=== PATIENT | female | born 1980 | race Caucasian/White ===

== ENCOUNTER → 2020-03-26 | Outpatient (REF) | payer OTHER ==
[~2020-03-26] MED LIST: FAMO20TA PO; MECL1TAB31 PO; ONDA4TAB6 PO; PAME10CA PO; mis; physical therapy
[2020-03-26 11:58] LABS: BASO % 0.7 % (0.0-1.0); EOS # 0.2 10^3/uL (0.0-0.5); EOS % 2.7 % (0.0-3.0); HEMATOCRIT 40.8 % (36.0-47.0); LYMPH # 1.7 10^3/uL (1.5-5.0); MEAN CORPUSCULAR HEMOGLOBIN 28.6 pg (27.0-33.0); MEAN CORPUSCULAR HGB CONC 31.9 g/dl (32.0-36.5); MEAN CORPUSCULAR VOLUME 89.9 fl (80.0-96.0); MONO # 0.5 10^3/uL (0.0-0.8); NEUTROPHILS # 3.3 10^3/uL (1.5-8.5); NEUTROPHILS % 58.4 % (36.0-66.0); PLATELET COUNT, AUTOMATED 309 10^3/uL (150-450); RED BLOOD COUNT 4.54 10^6/uL (4.00-5.40); WHITE BLOOD COUNT 5.6 10^3/uL (4.0-10.0)
[2020-03-26 13:06] LABS: ALBUMIN 3.7 GM/DL (3.2-5.2); ALT/SGPT 27 U/L (12-78); BILIRUBIN,TOTAL 0.6 MG/DL (0.2-1.0); BLOOD UREA NITROGEN 11 MG/DL (7-18); CALCIUM LEVEL 9.4 MG/DL (8.5-10.1); CARBON DIOXIDE LEVEL 26 MEQ/L (21-32); CHLORIDE LEVEL 106 MEQ/L (98-107); CHOLESTEROL LEVEL 181 MG/DL (<200); CHOLESTEROL RISK RATIO 3.549 (<5); CREATININE FOR GFR 0.83 MG/DL (0.55-1.30); FREE T4 1.13 NG/DL (0.76-1.46); GLOMERULAR FILTRATION RATE > 60.0 (>58); GLUCOSE, FASTING 81 MG/DL (70-100); HDL CHOLESTEROL 51 MG/DL (>40); LDL CHOLESTEROL 101 MG/DL (<100); NON-HDL-C 130 MG/DL; POTASSIUM SERUM 4.2 MEQ/L (3.5-5.1); SODIUM LEVEL 138 MEQ/L (136-145); TOTAL PROTEIN 7.3 GM/DL (6.4-8.2); TRIGLYCERIDES LEVEL 146 MG/DL (<150)
[2020-03-26 14:28] LABS: HEMOGLOBIN A1c 5.6 %
== END ==
LOC: M SFHCPLAZ 10:04
PROVIDERS: ATTEND Physician Assistant Medical
DX: Z13.220 Encounter for screening for lipoid disorders (principal); K21.9 Gastro-esophageal reflux disease without esophagitis; Z68.31 Body mass index [BMI] 31.0-31.9, adult

== ENCOUNTER → 2020-03-26 | Outpatient (CLI) | payer OTHER ==
--- NOTE | 2020-03-26 10:41 | REPPI ---
Clinical: Left shoulder pain . Technique: Internal rotation, external rotation, and Y view left shoulder . Findings: No acute fracture or dislocation. The acromioclavicular and glenohumeral joints are intact. No periarticular calcifications or degenerative changes are appreciated. Sub acromial space is normal. Surrounding soft tissues are unremarkable. Impression: Normal age-appropriate left shoulder radiographs. Electronically Signed by Jeff Mejias MD 03/26/2020 10:33 A
== END ==
LOC: M PLAIMG 10:06
PROVIDERS: ATTEND Physician Assistant Medical
DX: M79.2 Neuralgia and neuritis, unspecified (principal)

== ENCOUNTER 2020-05-06 13:00 | Outpatient (RCR) | payer OTHER | END 2020-05-10 | disposition home or self-care (01) | LOC: M PT 13:00 | PROVIDERS: ATTEND Physician Assistant Medical | DX: M79.2 Neuralgia and neuritis, unspecified (principal) ==

== ENCOUNTER → 2020-05-30 | Outpatient (CLI) | payer OTHER ==
--- NOTE | 2020-06-01 13:54 | REPMRS ---
Patient History The patient states she had a clinical breast exam in 05/2020. No known family history of cancer. No Hormone Replacement Therapy Digital Woman Screen Mammo: May 30, 2020 - Exam #: [id number] Bilateral CC and MLO view(s) were taken. Technologist: Renate Reed, Technologist No prior studies available for comparison. FINDINGS: There are scattered fibroglandular densities. The Volpara volumetric breast density category is: B. There is no evidence of dominant mass, architectural distortion, or grouped microcalcification typical of malignancy. 3-D tomosynthesis shows no additional findings. Assessment: BI-RADS/ACR category 1 mammogram. Negative Mammogram. Recommendation Routine screening mammogram of both breasts in 1 year (for women over age 40). This patient's Lifetime Breast Cancer RIsk is estimated at 9.7 %. This mammogram was interpreted with the aid of an FDA-approved computer-aided dectection system. Electronically Signed By: Joby Torres MD 06/01/20 [id number]
== END ==
LOC: M WHC 13:09
PROVIDERS: ATTEND Advanced Practice Midwife
DX: Z12.31 Encounter for screening mammogram for malignant neoplasm of breast (principal); Z12.4 Encounter for screening for malignant neoplasm of cervix

== ENCOUNTER → 2020-05-30 | Outpatient (REF) | payer OTHER ==
[2020-05-30 20:38] LABS: CHLAMYDIA DNA AMPLIFICATION NEGATIVE (NEGATIVE); GC DNA AMPLIFICATION NEGATIVE (NEGATIVE)
== END ==
LOC: M LAB REF 16:59
PROVIDERS: ATTEND Advanced Practice Midwife
DX: Z11.3 Encounter for screening for infections with a predominantly sexual mode of transmission (principal)

== ENCOUNTER 2020-06-06 15:15 | Outpatient (RCR) | payer OTHER | END 2020-06-10 | LOC: M PT 15:15 | PROVIDERS: ATTEND Physician Assistant Medical | DX: M79.2 Neuralgia and neuritis, unspecified (principal) ==

== ENCOUNTER 2020-07-09 15:15 | Outpatient (RCR) | payer OTHER | END 2020-07-10 | LOC: M PT 15:15 | PROVIDERS: ATTEND Physician Assistant Medical | DX: M79.2 Neuralgia and neuritis, unspecified (principal) ==

== ENCOUNTER 2020-07-26 10:59 | Emergency (ER) | payer OTHER ==
[~2020-07-26] VITALS: Ht 165.1 cm; Wt 85.9 kg
[2020-07-26] MEDS ORDERED: FAMO20TA PO (11:09)
[2020-07-26] MEDS ORDERED: PAME10CA PO (11:09)
[2020-07-26] MEDS ORDERED: ONDANSETRON 4 MG ORAL DISINTEGRATING TAB PO ONE (11:45)
[2020-07-26] MEDS ORDERED: MECLIZINE 25 MG TABLET PO ONE (12:00)
--- NOTE | 2020-07-26 12:48 | REPVR ---
PROCEDURE INFORMATION: Exam: CT Head Without Contrast Exam date and time: 07/26/2020 12:37 PM Age: 40 years old Clinical indication: Dizziness; Additional info: Vertigo/dizziness TECHNIQUE: Imaging protocol: Computed tomography of the head without contrast. Radiation optimization: All CT scans at this facility use at least one of these dose optimization techniques: automated exposure control; mA and/or kV adjustment per patient size (includes targeted exams where dose is matched to clinical indication); or iterative reconstruction. COMPARISON: No relevant prior studies available. FINDINGS: Brain: Normal. No hemorrhage. Unremarkable white matter. No mass effect. Cerebral ventricles: No ventriculomegaly. Bones/joints: Unremarkable. No acute fracture. Paranasal sinuses: Visualized sinuses are unremarkable. No fluid levels. Mastoid air cells: Visualized mastoid air cells are well aerated. Soft tissues: Unremarkable. IMPRESSION: No acute intracranial abnormality. Electronically signed by: Abbie Chance On 07/26/2020 12:47:53 PM
[2020-07-26] MEDS ORDERED: mis (14:10)
[2020-07-26] MEDS ORDERED: physical therapy (14:10)
[2020-07-26] MEDS ORDERED: MECL1TAB31 PO (14:10)
[2020-07-26] MEDS ORDERED: ONDA4TAB6 PO (14:10)
[2020-07-26 14:19] VITALS: BP 133/73
--- NOTE | 2020-07-27 07:43 | ECGEPIP ---
[facility] - ED Test Date: 2020-07-26 Pat Name: TANGELA PAULINO Department: Room: - Gender: Female Certified Ophthalmic Assistant: JACLYN : 1980 Requested By: Guillermina Crews Order Number: [id number] Reading MD: Matthew Liz Measurements Intervals [place] Rate: 88 P: 38 MD: 175 QRS: 9 QRSD: 84 T: -8 QT: 330 QTc: 401 Interpretive Statements SINUS RHYTHM NONSPECIFIC T-WAVE ABNORMALITY Baseline artifact Comparison tracing not on file Electronically Signed on 07-27-2020 7:43:25 EDT by Matthew Liz
== END 2020-07-26 14:29 | disposition home or self-care (01) ==
LOC: M ED 10:59
DX: H81.10 Benign paroxysmal vertigo, unspecified ear (principal)
CPT/HCPCS: 70450; 93005; 97161; 99284; Q0162

== ENCOUNTER → 2020-08-07 | Outpatient (CLI) | payer OTHER ==
--- NOTE | 2020-08-07 15:13 | REPPI ---
INDICATION: M79.2 NEUROPATHIC PAIN OF LEFT SHOULDER. COMPARISON: None. TECHNIQUE: Seven views. FINDINGS: Lateral views done in flexion, extension, and neutral position demonstrate normal alignment. Vertebral body heights are preserved. No subluxation or instability is seen. There is degenerative disc narrowing and anterior osteophyte formation mild degree at the C 4 5 and C5-6 disc levels. Prevertebral soft tissues are unremarkable. Oblique images demonstrate intact neural foramina bilaterally at each cervical level and normally aligned facets. AP and open-mouth odontoid views are unremarkable. IMPRESSION: Mild degenerative disc changes at C4-5 and C5-6. Otherwise negative cervical spine radiographs. <Electronically signed by Joby Torres > 08/07/20 [id number]
== END ==
LOC: M PLAIMG 11:37
PROVIDERS: ATTEND Physician Assistant Medical
DX: M79.2 Neuralgia and neuritis, unspecified (principal)

== ENCOUNTER → 2020-08-26 | Outpatient (CLI) | payer OTHER ==
--- NOTE | 2020-08-26 18:29 | REP ---
INDICATION: NEUROPATHIC PAIN LEFT SHOULDER. COMPARISON: None. TECHNIQUE: Coronal oblique T1, T2 fat sat, sagittal oblique T2 fat sat, axial T2 fat sat, gradient echo. FINDINGS: Rotator cuff: There is mild ill-defined high signal on T2 weighted images in the supraspinatus tendon suggesting mild tendinopathy/tendinitis. No rotator cuff tendon tear is seen. Acromioclavicular joint: There are mild hypertrophic degenerative changes at the acromioclavicular joint. Acromion: Type 2 Biceps Tendon: In bicipital groove, no tenosynovitis. Hill Sach's deformity: None. Deltoid muscle: No abnormal signal. Biceps labral complex: Intact. Labrum: No tear. Cartilage: No defects. Bone marrow: No abnormal signal. Joint fluid: No effusion. IMPRESSION: Mild supraspinatus tendinopathy/tendinitis. No rotator cuff tear or labral tear. Mild hypertrophic degenerative changes acromioclavicular joint. <Electronically signed by Ryder Mansfield > 08/26/20 0339
--- NOTE | 2020-08-26 18:56 | REPVR ---
PROCEDURE INFORMATION: Exam: MR Cervical Spine Without Contrast Exam date and time: 08/26/2020 5:18 PM Age: 40 years old Clinical indication: Other: Neuropathic pain left shoulder TECHNIQUE: Imaging protocol: Multiplanar magnetic resonance images of the cervical spine without contrast. COMPARISON: CR SPINE CERVICAL COMPLETE 08/07/2020 11:54 AM FINDINGS: Vertebrae: Unremarkable. Spinal cord: Normal signal. No cord compression. C2-C3: No significant disc disease. No significant spinal stenosis. C3-C4: No significant disc disease. No significant spinal stenosis. C4-C5: Disc bulge. Moderate bilateral neural foraminal narrowing. Mild to moderate spinal canal stenosis. C5-C6: Disc bulge. Mild to moderate bilateral neural foraminal narrowing. Mild spinal canal stenosis. C6-C7: Disc bulge. Mild spinal canal stenosis. No neural foraminal narrowing. C7-T1: No significant disc disease. No significant spinal stenosis. Vertebral arteries: Expected flow voids in the vertebral arteries. Soft tissues: Unremarkable. IMPRESSION: No acute abnormality. Multilevel degenerative disc disease with neural foraminal narrowing. Moderate bilateral neural foraminal narrowing at C4-C5, mild to moderate bilateral C5-C6. Mild to moderate spinal canal stenosis at C4-C5, mild at C5-C6 and C6-C7 levels. Electronically signed by: Aaron Mak On 08/26/2020 18:56:20 PM
== END ==
LOC: M RAD 16:19
PROVIDERS: ATTEND Physician Assistant Medical
DX: M79.2 Neuralgia and neuritis, unspecified (principal); M50.321 Other cervical disc degeneration at C4-C5 level; M50.322 Other cervical disc degeneration at C5-C6 level

== ENCOUNTER → 2020-09-20 | Outpatient (REF) | payer OTHER ==
[2020-09-21 18:07] LABS: H PYLORI SERUM QUANT IGM <9.0 units (0.0-8.9); H PYLORI SERUM QUANT IgG ABY 0.13 (0.00-0.79)
== END ==
LOC: M SFHCPLAZ 11:03
PROVIDERS: ATTEND Physician Assistant Medical
DX: R19.5 Other fecal abnormalities (principal)

== ENCOUNTER 2020-11-11 11:22 | Emergency (ER) | payer OTHER ==
[~2020-11-11] VITALS: Ht 165.1 cm; Wt 84.1 kg
--- OUTSIDE RECORDS SUMMARY | 2020-11-11 11:34 | CCD | Continuity of Care Document ---
Author Author Cassie ERWIN MD Organization Unknown Address [address] [place] [address] Phone [phone] Care Team Providers Care Fire Hydrant Mechanic Name Role Phone Amena Rodrigues SPENCER AUTM [phone] Problems Description No Information Available Social History Type Date Description Comments Sex Unknown ETOH Use Denies alcohol use Tobacco Use Start: Unknown Denies Smoking Smoking Status Reviewed: 09/27/20 Denies Smoking Allergies, Adverse Reactions, Alerts Active Allergies Reaction Severity Comments Date Penicillin V 09/27/2020 Shrimp 09/27/2020 Medications Active Medications SIG Qnty Indications Ordering Provide r Date Pepcid 40mg Tablets 1 by mouth twice a day Unknown Neurontin 100mg Capsules 1 by mouth three times a day Unknown Immunizations Description No Information Available Vital Signs Date Vital Result Comment 09/27/2020 11:21am Body Temperature 97.3 F Height 65 inches 5'5" Weight 190.00 lb BMI (Body Mass Index) 31.6 kg/m2 Results Description No Information Available Procedures Description No Information Available Medical Devices Description No Information Available Encounters Description No Information Available Assessments Date Code Description Provider 09/27/2020 M25.512 Pain in left shoulder Omari ramos MD 09/27/2020 M54.12 Radiculopathy, cervical region B lars Erwin MD Plan of Treatment 09/27/2020 - Omari Erwin MD* M25.512 Pain in left shoulder* Follow up:* f/u With [facility] for emg study f/u with [facility] after emg study for results * M54.12 Radiculopathy, cervical region Functional Status Description No Information Available Mental Status Description No Information Available Referrals Refer to Reason for Referral Status Appt Date Omari Erwin MD REF NO AUTH REQUIRED FOR REF TO DR WEBBER TO TRA NS NT Created [address] [facility], [address] [place] [address] [phone]
--- OUTSIDE RECORDS SUMMARY | 2020-11-11 11:34 | CCD ---
Author Author [facility] Organization [facility] Address Unknown Phone Unavailable Care Team Providers Care Stock Tracer Name Role Phone Amena Rodrigues Unavailable PROBLEMS Type Condition ICD9-CM Code [id number] Code Onset Dates Condition S tatus SNOMED Code Notes Problem Lipid screening Z13.220 Active 973101972 Problem Colon cancer screening Z12.11 Active 347892283 Problem Breast cancer screening Z12.39 Active 10678244 1 Problem DDD (degenerative disc disease), cervical M50.30 Active 49132803 Problem Gastroesophageal reflux disease, esophagitis pre sence not specified K21.9 Active 959971034 Problem Spinal stenosis, cervical region M48.02 Active 52196385 Problem Cervical cancer screening Z12.4 Active 271052 001 Problem Body mass index (BMI) 31.0-31.9, adult Z68.31 A ctive 095900540 Problem Other obesity due to excess calories E66.09 Act boo 012827931 Problem 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.012 Active 0803296387356939 ALLERGIES Allergen (clinical drug ingredient) Drug/Non Drug Allergy do cumented on EMR Reaction Allergy Type Onset Date Status Penicillin (For Allergies Use Only) Unknown Drug Allerg y Active ENCOUNTERS from 1980 to 2020-08-28 Encounter Location Date Provider Diagnosis [facility] [place] [address] Aug, Amena Rodrigues Neuropathic pain of left shoulder M79.2 ; DDD (degenerative disc disease), cervical M50.30 ; Spinal stenosis, cervical region M48.02 ; Left supraspinatus tendinitis M75.92 and 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 Yes LMP: 03/15/2020 Have you ever had an STD? No Prevention Strategies discussed: Condoms with Men only Use protection? Yes How often? Most of the time Drug and Alcohol Question Answer Notes Total Score: 0 Interpretation: No problems reported Tobacco Use: Question Answer Notes Are you a: never smoker REASON FOR REFERRAL No Information VITAL SIGNS No information MEDICATIONS Medication SIG (Take, Route, Frequency, Duration) Notes Start Da te End Date Status Pepcid 40 MG 1 tablet Orally twice daily for 30 day(s) Active Gabapentin 100 MG 1 capsule Orally bid for 30 day(s) 2019 Active PROCEDURES No Information RESULTS No Results REASON FOR VISIT MRI of L shoulder, C spine MEDICAL (GENERAL) HISTORY Type Description Date Medical History L)[place]oulder rotator cuff tear Surgical History L)shoulder rotator cuff repair 2017 Surgical History gall bladder Surgical History tubal ligation Hospitalization History child x's 3 Goals Section No Information Health Concerns No Information MEDICAL EQUIPMENT No Information MENTAL STATUS No Information FUNCTIONAL STATUS No Information ASSESSMENTS Encounter Date Diagnosis Assessment Notes Treatment Notes Treatm ent Clinical Notes Aug, Neuropathic pain of left shoulder (ICD-10 - M79. 2) Aug, DDD (degenerative disc disease), cervical (ICD-1 0 - M50.30) Aug, Spinal stenosis, cervical region (ICD-10 - M48.0 2) Aug, Left supraspinatus tendinitis (ICD-10 - M75.92) Aug, Degenerative joint disease o f left acromioclavicular joint (ICD-10 - M19.012) PLAN OF TREATMENT Medication Medication Name Sig Start Date Stop Date Pepcid 40 MG 1 tablet Orally twice daily for 30 day(s) Gabapentin 100 MG 1 capsule Orally bid for 30 day(s) Jul, 0 Next Appt Details Provider Name:Amena Rodrigues, 2019-10 01:00:00 PM, [address] [place], [address], Insurance Providers Payer Name Payer Address Payer Phone Insured Name Patient Relati onship to Insured Coverage Start Date Coverage End Date [facility] [address] [facility] [phone] TANGELA PAULINO I self
--- OUTSIDE RECORDS SUMMARY | 2020-11-11 11:34 | CCD | Continuity of Care Document ---
Author Author Cassie JAY MD Organization Unknown Address [address] [place] [address], [address] [place] [address] Phone [phone] Care Team Providers Care Chip Tuner Name Role Phone Amena Rodrigues RPAChetan AUTM Problems Description No Information Available Social History Type Date Description Comments Sex Unknown ETOH Use Rarely consumes alcohol Tobacco Use Start: Unknown Denies Smoking Smoking [...] Available Vital Signs Date Vital Result Comment 10/22/2020 8:36am Body Temperature 97.1 F Height 65 inches 5'5" Weight 190.00 lb BMI (Body Mass Index) 31.6 kg/m2 09/27/2020 11:21am Body Temperature 97.3 F Height 65 inches 5'5" Weight 190.00 lb BMI (Body Mass Index) 31.6 kg/m2 Results Description No Information Available Procedures Date Code Description Status 09/27/2020 96170 Inject Tendon Sheath, Ligament C ompleted Medical Devices Description No Information Available Encounters Type Date Location Provider Dx Diagnosis Office Visit 09/27/2020 10:[facility]a [facility] [place] MD M25.512 Pain in left shoulder M54.12 Radiculopathy, cervical janet on Assessments Date Code Description Provider 09/27/2020 M25.512 Pain in left shoulder Omari ramos MD 09/27/2020 M54.12 Radiculopathy, cervical region B lars Perry MD Plan of Treatment No Information Available Functional Status Description No Information Available Mental Status Description No Information Available Referrals Refer to Reason for Referral Status Appt Date Omari Perry MD EMG NO AUTH REQUIRED TO SCHEDULING NT Create d [address] [place] [address] [phone] Omari Perry MD EMG NO AUTH REQUIRED TO SCHEDULING NT Create d [address] [place] [address] [phone] Omari Perry MD REF NO AUTH REQUIRED FOR REF TO DR WEBBER TO TRA NS NT Created [address] [place] [address] [phone]
--- OUTSIDE RECORDS SUMMARY | 2020-11-11 11:34 | CCD | Continuity of Care Document ---
Author Author Cassie ERWIN MD Organization Unknown Address [address] [place] [address] Phone [phone] Care Team Providers Care Television Station Manager Name Role Phone Amena Rodrigues Toy PALMER AUTM Problems Description No Information Available Social [...] Available Procedures Date Code Description Status 09/27/2020 90131 Inject Tendon Sheath, Ligament C ompleted Medical Devices Description No Information Available Encounters Type Date Location Provider Dx Diagnosis Office Visit 09/27/2020 10:[facility]a [facility] M25.512 Pain in left shoulder M54.12 Radiculopathy, cervical janet on Assessments Date Code Description Provider 09/27/2020 M25.512 Pain in left shoulder Omari ramos MD 09/27/2020 M54.12 Radiculopathy, cervical region B lars Erwin MD Plan of Treatment Future Appointment(s):* 10/22/2020 8:30 am - Xiang Horne MD at [facility] 09/27/2020 - Omari Erwin MD* M25.512 Pain in left shoulder* Follow up:* [facility] f/u with [facility] after emg study for results * M54.12 Radiculopathy, cervical region Functional Status Description No Information Available Mental Status Description No Information Available Referrals Refer to Reason for Referral Status Appt Date Omari Erwin MD EMG NO AUTH REQUIRED TO SCHEDULING NT Create d [address] [place] [address] [phone] Omari Erwin MD EMG NO AUTH REQUIRED TO SCHEDULING NT Create d [address] [place] [address] [phone] Omari Erwin MD REF NO AUTH REQUIRED FOR REF TO DR WEBBER TO TRA NS NT Created [address] [place] [address] [phone]
--- OUTSIDE RECORDS SUMMARY | 2020-11-11 11:34 | CCD ---
Author Author [facility] Organization [facility] Address Unknown Phone Unavailable Care Team Providers Care Pin Chaser Name Role Phone Amena Rodrigues Unavailable PROBLEMS Type Condition ICD9-CM Code POZ02-DC Code Onset Dates Condition S tatus SNOMED Code Notes Problem Lipid screening Z13.220 Active 578208435 Problem Colon cancer screening Z12.11 Active 111340873 Problem Breast cancer screening Z12.39 Active 20555785 1 Problem DDD (degenerative disc disease), cervical M50.30 Active 37453439 Problem Gastroesophageal reflux disease, esophagitis pre sence not specified K21.9 Active 113248352 Problem Spinal stenosis, cervical region M48.02 Active 19478506 Problem Cervical cancer screening Z12.4 Active 137576 001 Problem Body mass index (BMI) 31.0-31.9, adult Z68.31 A ctive 547519129 Problem Other obesity due to excess calories E66.09 Act boo 839848577 Problem 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.012 Active 8088049490812118 ALLERGIES Allergen (clinical drug ingredient) Drug/Non Drug Allergy do cumented on EMR Reaction Allergy Type Onset Date Status Penicillin (For Allergies Use Only) Unknown Drug Allerg y Active ENCOUNTERS from 1980 to 2020-09-26 Encounter Location Date Provider [facility] [place] [address] Sep, Amena Rodrigues Neuropathic pain of left shoulder M79.2 ; DDD (degenerative disc disease), cervical M50.30 ; Spinal stenosis, cervical region M48.02 ; Left supraspinatus tendinitis M75.92 ; 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.012 and Loose stools R19.5 IMMUNIZATIONS No Information SOCIAL HISTORY Tobacco Use: Social History Observation Description Date Details (start date - stop date) Never Smoker Sex Assigned At : Social History Observation Description Sex Assigned At Unknown Education: Question Answer Notes Level of Education: Technical/Trade scho ol Audit Question Answer Notes Total Score: 1 Interpretation: Alcohol Education Language: Question Answer Notes Languages spoken: Chinese Rastafari: Question Answer Notes Rastafari 21 Samaritan Sexual Hx: Question Answer Notes Had sex [...] REASON FOR REFERRAL No Information VITAL SIGNS Weight 189.6 lbs Sep, Height 65 in Sep, BMI 31.55 kg/m2 Sep, Heart Rate 91 /min Sep, Respiratory Rate 20 /min Sep, Temperature 96.0 degrees Fahrenheit Sep, Oximetry 100% Sep, Blood pressure systolic 132 mm Hg Sep, Blood pressure diastolic 82 mm Hg Sep, MEDICATIONS Medication SIG (Take, Route, Frequency, Duration) Notes Start Da te End Date Status Pepcid 40 MG 1 tablet Orally twice daily for 30 day(s) Active Gabapentin 100 MG 1 capsule Orally bid for 30 day(s) 2019 Active PROCEDURES No Information RESULTS Component Value Reference Range H PYLORI SERUM QUANT IgG AZRA Reviewed date:09/23/2020 10:07:58 Interpretation: Performing Lab:Count Includes [facility], [facility] [address] [facility] [address] , ,[place] [address] H PYLORI SERUM QUANT IgG AZRA 0.13 0.00-0.79 H PYLORI SERUM QUANT IGM Reviewed date:09/23/2020 10:06:29 Interpretation: Performing Lab:Count Includes [facility], [facility] [address] [facility] [address] , ,[place] [address] H PYLORI SERUM QUANT IGM <9.0 0.0-8.9 REASON FOR VISIT r/s 4-6 week FU after MRI MEDICAL (GENERAL) HISTORY Type Description Date Medical [...] Notes Treatment Notes Treatm ent Clinical Notes Sep, Neuropathic pain of left shoulder (ICD-10 - M79. 2) Sep, DDD (degenerative disc disease), cervical (ICD-1 0 - M50.30) Pt. & sister will arrange date & time of PT to start Sep, Spinal stenosis, cervical region (ICD-10 - M48.0 2) Sep, Left supraspinatus tendinitis (ICD-10 - M75.92) ORtho. consult Sep, Degenerative joint disease o f left acromioclavicular joint (ICD-10 - M19.012) ORtho. consult Sep, Loose stools (ICD-10 - R19.5) Probiotics over the counter PLAN OF TREATMENT Treatment Notes Assessment Notes Clinical Notes DDD (degenerative disc disease), cervical Pt. & sister will arrange date & time of PT to start Left supraspinatus tendinitis ORtho. con sult Degenerative joint disease of left acromioclavicular joint ORtho. consult Loose stools Probiotics over the counter Treatment Notes Test Name Order Date GASTROINTESTINAL GI PANEL (GIPANEL) 2020-09-26 Next Appt Details 3 Months f/u c SS Reason: Provider Name:Amena Rodrigues, 12-19 09:30:00 AM, [address] [place], [address], Insurance Providers Payer Name Payer Address Payer Phone Insured Name Patient Relati onship to Insured Coverage Start Date Coverage End Date [facility] [address] [facility] [phone] TANGELA PAULINO
--- OUTSIDE RECORDS SUMMARY | 2020-11-11 11:34 | CCD | Continuity of Care Document ---
Author Author Cassie ERWIN MD Organization Unknown Address [address] [place] [address] Phone [phone] Care Team Providers Care Mud Analysis Supervisor Name Role Phone Amena Rodrigues Toy PALMER [...] Available Vital Signs Date Vital Result Comment 10/29/2020 9:06am Body Temperature 97.1 F 10/22/2020 8:36am Body Temperature 97.1 F Height 65 inches 5'5" Weight 190.00 lb BMI (Body Mass Index) 31.6 kg/m2 Results Description No Information Available Procedures Date Code Description Status 10/22/2020 77552 Nerve Conduction 9-10 Studies Co mpleted 10/22/2020 99384 Needle Electromyography,Complete Five Or More Muscles Studied Completed 09/27/2020 20549 Inject Tendon Sheath, Ligament C ompleted Medical Devices Description No Information Available Encounters Type Date Location Provider Dx Diagnosis Office Visit 10/22/2020 8:30a [place] Xiang Horne MD M47.892 Other spondylosis, cervical region M50.20 Other cervical disc displace ment, unsp cervical region M50.322 Other cervical disc degenera tion at C5-C6 level M50.323 Other cervical disc degenera tion at C6-C7 level M54.12 Radiculopathy, cervical janet on R20.2 Paresthesia of skin Office Visit 09/27/2020 10:45a [place] Omari Erwin MD M25.512 Pain in left shoulder M54.12 Radiculopathy, cervical janet on Assessments Date Code Description Provider 10/29/2020 M47.892 Other spondylosis, cervical janet on Omari Erwin MD 10/29/2020 M50.20 Other cervical disc displacement , unspecified cervical region Omari Erwin MD 10/29/2020 M50.322 Other cervical disc degeneration at C5-C6 level Omari Erwin MD 10/29/2020 M50.323 Other cervical disc degeneration at C6-C7 level Omari Erwin MD 10/29/2020 M54.12 Radiculopathy, cervical region B lars Erwin MD 10/29/2020 R20.2 Paresthesia of skin Omari Saenz rd, MD 10/29/2020 M25.512 Pain in left shoulder Omari ramos MD 10/22/2020 M47.892 Other spondylosis, cervical janet on Xiang Horne MD 10/22/2020 M50.20 Other cervical disc displacement , unspecified cervical region Xiang Horne MD 10/22/2020 M50.322 Other cervical disc degeneration at C5-C6 level Xiang Horne MD 10/22/2020 M50.323 Other cervical disc degeneration at C6-C7 level Xiang Horne MD 10/22/2020 M54.12 Radiculopathy, cervical region H gamal Horne MD 10/22/2020 R20.2 Paresthesia of skin Xiang champagne MD 09/27/2020 M25.512 Pain in left shoulder Omari ramos MD 09/27/2020 M54.12 Radiculopathy, cervical region B lars Erwin MD Plan of Treatment 10/29/2020 - Omari Erwin MD* M47.892 Other spondylosis, cervical region* New Orders:* [facility]repid Deni Injections, Ordered: 10/29/20 * Follow up:* post inj in 6-8 weeks with [facility] for shoulder eval per [facility] * M50.20 Other cervical disc displacement, unspecified cervical region * M50.322 Other cervical disc degeneration at C5-C6 level * M50.323 Other cervical disc degeneration at C6-C7 level * M54.12 Radiculopathy, cervical region * R20.2 Paresthesia of skin * M25.512 Pain in left shoulder Functional Status Description No Information Available Mental Status Description No Information Available Referrals Refer to Reason for Referral Status Appt Date Omari Erwin MD EMG NO AUTH REQUIRED TO SCHEDULING NT Create d [address] [place] [address] [phone] Omari Erwin MD EMG NO AUTH REQUIRED TO SCHEDULING NT Create d [address] [place] [address] [phone] Omari Erwin MD REF NO AUTH REQUIRED FOR REF TO DR WEBBER TO TRA NS NT Created [address] [place] [address] [phone]
--- OUTSIDE RECORDS SUMMARY | 2020-11-11 11:34 | CCD | Continuity of Care Document ---
Author Author Cassie JAY MD Organization Unknown Address [address] [place] [address], [facility] [address] [place] [address] Phone [phone] Care Team Providers Care Full Stack Software Developer Name Role Phone Amena Rodrigues Toy PALMER [...] BMI (Body Mass Index) 31.6 kg/m2 Results Test Acquired Date Facility Test Result H/L Range Note Order 10/30/2020 [facility] [address] [place] [address] Intrepid Deni Injections <pending> Procedures Date Code Description Status 10/22/2020 95708 Nerve Conduction 9-10 Studies Co mpleted 10/22/2020 55233 Needle Electromyography,Complete Five Or More Muscles Studied Completed 09/27/2020 35014 Inject Tendon Sheath, Ligament C ompleted Medical Devices Description No Information Available Encounters Type Date Location Provider Dx Diagnosis Office Visit 10/22/2020 8:30a [place] Xiang Jay MD R20.2 Paresthesia of skin M47.892 Other spondylosis, cervical region M50.322 Other cervical disc degenera tion at C5-C6 level M50.323 Other cervical disc degenera tion at C6-C7 level M50.321 Other cervical disc degenera tion at C4-C5 level M54.12 Radiculopathy, cervical janet on Office Visit 09/27/2020 10:45a [place] Omari Perry MD M25.512 Pain in left shoulder M54.12 Radiculopathy, cervical janet on Assessments Date Code Description Provider 10/29/2020 M47.892 Other spondylosis, cervical janet on Omari Perry MD 10/29/2020 M50.20 Other cervical disc displacement , unspecified cervical region Omari Perry MD 10/29/2020 M50.322 Other cervical disc degeneration at C5-C6 level Omari Perry MD 10/29/2020 M50.323 Other cervical disc degeneration at C6-C7 level Omari Perry MD 10/29/2020 M54.12 Radiculopathy, cervical region B lars Perry MD 10/29/2020 R20.2 Paresthesia of skin Omari Saenz rd, MD 10/29/2020 M25.512 Pain in left shoulder Omari ramos MD 10/22/2020 R20.2 Paresthesia of skin Xiang champagne MD 10/22/2020 M47.892 Other spondylosis, cervical janet on Xiang Jay MD 10/22/2020 M50.322 Other cervical disc degeneration at C5-C6 level Xiang Jay MD 10/22/2020 M50.323 Other cervical disc degeneration at C6-C7 level Xiang Jay MD 10/22/2020 M50.321 Other cervical disc degeneration at C4-C5 level Xiang Jay MD 10/22/2020 M54.12 Radiculopathy, cervical region H gamal Jay MD 09/27/2020 M25.512 Pain in left shoulder Omari ramos MD 09/27/2020 M54.12 Radiculopathy, cervical region B lars Perry MD Plan of Treatment 10/22/2020 - Xiang Jay MD* R20.2 Paresthesia of skin * M47.892 Other spondylosis, cervical region* Follow up:* with [facility] for LUE EMG/NCS results please. * M50.322 Other cervical disc degeneration at C5-C6 level * M50.323 Other cervical disc degeneration at C6-C7 level * M50.321 Other cervical disc degeneration at C4-C5 level * M54.12 Radiculopathy, cervical region Functional Status Description No Information Available Mental Status Description No Information Available Referrals Refer to Reason for Referral Status Appt Date Omari Perry MD D[facility] [place] ([id number] [place] [id number]) P ER [place] [facility] NO AUTH REQUIRED TO SURGERY NT Created [address] [place] [address] [phone] Omari Perry MD EMG NO AUTH REQUIRED TO SCHEDULING NT Create d [address] [place] [address] [phone] Omari Perry MD EMG NO AUTH REQUIRED TO SCHEDULING NT Create d [address] [place] [address] [phone] Omari Perry MD REF NO AUTH REQUIRED FOR REF TO DR WEBBER TO TRA NS NT Created [address] [place] [address] [phone]
--- OUTSIDE RECORDS SUMMARY | 2020-11-11 11:35 | CCD ---
Author Author [facility] Organization [facility] Address Unknown Phone Unavailable Care Team Providers Care Instructor Technical Training Name Role Phone Horne, Xiang Unavailable Unavailable Horne, Xiang Unavailable Unavailable Horne, Xiang Unavailable Unavailable Horne, Xiang Unavailable Unavailable Horne, Xiang Unavailable Unavailable Horne, Xiang Unavailable Unavailable Horne, Xiang Unavailable Unavailable Horne, Xiang Unavailable Unavailable Horne, Xiang Unavailable Unavailable Horne, Xiang Unavailable Unavailable Horne, Xiang Unavailable Unavailable Horne, Xiang Unavailable Unavailable Horne, Xiang Unavailable Unavailable Horne, Xiang Unavailable Unavailable Horne, Xiang Unavailable Unavailable Horne, Xiang Unavailable Unavailable Horne, Xiang Unavailable Unavailable Horne, Xiang Unavailable Unavailable Horne, Xiang Unavailable Unavailable Horne, Xiang Unavailable Unavailable Horne, Xiang Unavailable Unavailable Horne, Xiang Unavailable Unavailable Horne, Xiang Unavailable Unavailable Horne, Xiang Unavailable Unavailable Horne, Xiang Unavailable Unavailable Horne, Xiang Unavailable Unavailable Horne, Xiang Unavailable Unavailable Horne, Xiang Unavailable Unavailable Horne, Xiang Unavailable Unavailable Honre, Xiang Unavailable Unavailable Horne, Xiang Unavailable Unavailable Horne, Xiang Unavailable Unavailable Horne, Xiang Unavailable Unavailable Horne, Xiang Unavailable Unavailable Horne, Xiang Unavailable Unavailable Horne, Xiang Unavailable Unavailable Horne, Xiang Unavailable Unavailable Horne, Xiang Unavailable Unavailable Horne, Xiang Unavailable Unavailable Horne, Xiang Unavailable Unavailable Horne, Xiang Unavailable Unavailable Horne, Xiang Unavailable Unavailable Horne, Xiang Unavailable Unavailable Horne, Xiang Unavailable Unavailable Guille Perry MD Unavailable Unavailable Guille Perry MD Unavailable Unavailable Guille Perry MD Unavailable Unavailable Guille Perry MD Unavailable Unavailable Guille Perry MD Unavailable Unavailable Guille Perry MD Unavailable Unavailable Guille Perry MD Unavailable Unavailable Guille Perry MD Unavailable Unavailable Guille Perry MD Unavailable Unavailable Guille Perry MD Unavailable Unavailable Guille Perry MD Unavailable Unavailable Guille Perry MD Unavailable Unavailable Guille Perry MD Unavailable Unavailable Perry, L Omari MD Unavailable Unavailable Perry, L Omari MD Unavailable Unavailable Perry, L Omari MD Unavailable Unavailable Perry, L Omari MD Unavailable Unavailable Perry, L Omari MD Unavailable Unavailable Perry, L Omari MD Unavailable Unavailable Perry, L Omari MD Unavailable Unavailable Perry, L Omari MD Unavailable Unavailable Perry, L Omari MD Unavailable Unavailable Perry, L Omari MD Unavailable Unavailable Perry, L Omari MD Unavailable Unavailable Perry, L Omari MD Unavailable Unavailable Perry, L Omari MD Unavailable Unavailable Perry, L Omari MD Unavailable Unavailable Perry, L Omari MD Unavailable Unavailable Perry, L Omari MD Unavailable Unavailable Perry, L Omari MD Unavailable Unavailable Perry, L Omari MD Unavailable Unavailable Perry, L Omari MD Unavailable Unavailable Perry, L Omari MD Unavailable Unavailable Perry, L Omari MD Unavailable Unavailable Perry, L Omari MD Unavailable Unavailable Perry, L Omari MD Unavailable Unavailable Perry, L Omari MD Unavailable Unavailable Perry, L Omari MD Unavailable Unavailable Perry, L Omari MD Unavailable Unavailable Perry, L Omari MD Unavailable Unavailable Perry, L Omari MD Unavailable Unavailable Perry, L Omari MD Unavailable Unavailable Perry, L Omari MD Unavailable Unavailable Perry, L Omari MD Unavailable Unavailable Perry, L Omari MD Unavailable Unavailable Perry, L Omari MD Unavailable Unavailable Perry, L Omari MD Unavailable Unavailable Re-disclosure Warning The records that you are about to access may contain information from federally-assisted alcohol or drug abuse programs. If such information is present, then the following federally mandated warning applies: This information has been disclosed to you from records protected by federal confidentiality rules (42 CFR part 2). The federal rules prohibit you from making any further disclosure of this information unless further disclosure is expressly permitted by the written consent of the person to whom it pertains or as otherwise permitted by 42 CFR part 2. A general authorization for the release of medical or other information is NOT sufficient for this purpose. The Federal rules restrict any use of the information to criminally investigate or prosecute any alcohol or drug abuse patient.The records that you are about to access may contain highly sensitive health information, the redisclosure of which is protected by Article 27-F of the [facility] Public Health law. If you continue you may have access to information: Regarding HIV / AIDS; Provided by facilities licensed or operated by the [facility] Office of Mental Health; or Provided by the [facility] Office for People With Developmental Disabilities. If such information is present, then the following [facility] mandated warning applies: This information has been disclosed to you from confidential records which are protected by state law. State law prohibits you from making any further disclosure of this information without the specific written consent of the person to whom it pertains, or as otherwise permitted by law. Any unauthorized further disclosure in violation of state law may result in a fine or detention sentence or both. A general authorization for the release of medical or other information is NOT sufficient authorization for further disc losure. Encounters Encounter Providers Location Date Indications Data Source(s ) Outpatient Attender: Xiang Horne Physical Therapy 10/22/2020 07:30:0 0 AM EST [facility] ([facility]) Outpatient Attender: Omari Perry MD Physical Therapy 09/27/2020 0 9:45:00 AM EST [facility] ([facility]) Outpatient [address] [facility] [place] [id number] 09/20/2020 12:00:00 AM EST eCW1 [facility] Unknown [address] [facility] [place] [address] 08/27/2020 12:00:00 AM EST eCW1 ([facility] Unknown [address] [facility] [place] [id number] 08/08/2020 12:00:00 AM EDT eCW1 ([facility] Outpatient [address] [facility] [place] [address] 08/07/2020 12:00:00 AM EDT eCW1 ([facility] Unknown [address] [facility] [place] [address] 07/02/2020 12:00:00 AM EDT eCW1 ([facility] Unknown [address] [facility] [place] [address] 07/02/2020 12:00:00 AM EDT eCW1 ([facility]) Outpatient [address] [facility] [place] [address] 04/29/2020 12:00:00 AM EDT eCW1 ([facility]) Outpatient 04/05/2020 05:37:00 AM EDT [facility] Outpatient [address] [facility] [address] [place] [address] 03/26/2020 12:00:00 AM EDT eCW1 ([facility]) Medications Medication Brand Name Start Date Product Form Dose Route Admi nistrative Instructions Pharmacy Instructions Status Indications Reaction Description Data Source(s) Famotidine 40 MG Oral Tablet FAMOTIDINE 08/09/2020 12:00:00 AM EDT tab let 60 TAKE ONE TABLET BY MOUTH TWICE A DAY TAKE ONE TABLET BY MOUTH TWICE A DAY SOLD: 10/23/2020 [facility] 40 mg 08/09/2020 12:00:00 AM EDT tablet 60 TAKE ONE TABLET BY MOUTH TWICE A DAY TAKE ONE TABLET BY MOUTH TWICE A DAY SOLD: 08/10/2020 [facility] Famotidine 40 MG Oral Tablet FAMOTIDINE 08/09/2020 12:00:00 AM EDT tab let 60 TAKE ONE TABLET BY MOUTH TWICE A DAY TAKE ONE TABLET BY MOUTH TWICE A DAY SOLD: 09/13/2020 [facility] gabapentin 100 MG Oral Capsule Gabapentin 100 MG Gabapentin 100 MG 08/07/2020 12:00:00 AM EDT 1.0 {capsule} active G abapentin 100 MG eCW1 ([facility]) gabapentin 100 MG Oral Capsule Gabapentin 100 MG Gabapentin 100 MG 08/07/2020 12:00:00 AM EDT 1.0 {capsule} active G abapentin 100 MG eCW1 ([facility]) 100 mg 08/07/2020 12:00:00 AM EDT capsule 60 TAKE ONE CAPSULE BY MOUTH TWICE A DAY TAKE ONE CAPSULE BY MOUTH TWICE A DAY SOLD: 08/08/2020 [facility] gabapentin 100 MG Oral Capsule Gabapentin 100 MG Gabapentin 100 MG 08/07/2020 12:00:00 AM EDT 1.0 {capsule} active G abapentin 100 MG eCW1 ([facility]) gabapentin 100 MG Oral Capsule Gabapentin 100 MG Gabapentin 100 MG 08/07/2020 12:00:00 AM EDT 1.0 {capsule} active G abapentin 100 MG eCW1 ([facility]) Meclizine Hydrochloride 25 MG Oral Tablet MECLIZINE HCL 07/26/2020 12:00:00 AM EDT tablet 30 TAKE ONE TABLET BY MOUTH HUEY RY 8 HOURS TAKE ONE TABLET BY MOUTH EVERY 8 HOURS SOLD: 07/26/2020 [facility] 4 mg 07/26/2020 12:00:00 AM EDT tablet,disintegrating 1 6 DISSOLVE ONE TABLET ON TONGUE EVERY 6 TO 8 HOURS NEEDED FOR NAUSEA AND VOMITING DISSOLVE ONE TABLET ON TONGUE EVERY 6 TO 8 HOURS NEEDED FOR NAUSEA AND VOMITING SOLD: 07/26/2020 [facility] 10 mg 05/04/2020 12:00:00 AM EDT capsule 90 TAKE ONE CAPSULE BY MOUTH THREE TIMES A DAY TAKE ONE CAPSULE BY MOUTH THREE TIMES A DAY SOLD: 07/04/2020 [facility] 10 mg 05/04/2020 12:00:00 AM EDT capsule 90 TAKE ONE CAPSULE BY MOUTH THREE TIMES A DAY TAKE ONE CAPSULE BY MOUTH THREE TIMES A DAY SOLD: 05/13/2020 [facility] 40 mg 03/26/2020 12:00:00 AM EDT tablet 30 TAKE ONE TABLET BY MOUTH EVERY DAY AT BEDTIME TAKE ONE TABLET BY MOUTH EVERY DAY AT BEDTIME SOLD: 06/03/2020 [facility] 40 mg 03/26/2020 12:00:00 AM EDT tablet 30 TAKE ONE TABLET BY MOUTH EVERY DAY AT BEDTIME TAKE ONE TABLET BY MOUTH EVERY DAY AT BEDTIME SOLD: 07/04/2020 [facility] 10 mg 03/26/2020 12:00:00 AM EDT capsule 30 TAKE ONE CAPSULE BY MOUTH EVERY DAY TAKE ONE CAPSULE BY MOUTH EVERY DAY SOLD: 03/26/2020 [facility] 40 mg 03/26/2020 12:00:00 AM EDT tablet 30 TAKE ONE TABLET BY MOUTH EVERY DAY AT BEDTIME TAKE ONE TABLET BY MOUTH EVERY DAY AT BEDTIME SOLD: 03/26/2020 [facility] 10 mg 03/26/2020 12:00:00 AM EDT capsule 30 TAKE ONE CAPSULE BY MOUTH EVERY DAY TAKE ONE CAPSULE BY MOUTH EVERY DAY SOLD: 04/28/2020 [facility] 40 mg 03/26/2020 12:00:00 AM EDT tablet 30 TAKE ONE TABLET BY MOUTH EVERY DAY AT BEDTIME TAKE ONE TABLET BY MOUTH EVERY DAY AT BEDTIME SOLD: 04/28/2020 [facility] Insurance Providers Payer name Policy type / Coverage type Policy ID Covered democrat ID Covered democrat's relationship to salazar Policy Salazar Plan Information FORMERLY [facility] [employer] [facility] [id number] SP [id number] [facility]LY [facility] [employer] [facility] [id number] SP [id number] [facility] O [id number] S [id number] Problems, Conditions, and Diagnoses Code Display Name Description Problem Type Effective Dates Data Source(s) M19.012 [id number] 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 Problem 08/27/2020 12:00:00 AM EST eCW1 ([facility]) M48.02 [id number] Spinal stenosis, cervical region Problem 08/27/2020 12:00:00 AM EST eCW1 ([facility]) M50.30 [id number] DDD (degenerative disc disease), cervical Problem 08/27/2020 12:00:00 AM EST eCW1 ([facility]) E66.09 [id number] Other obesity due to excess calories Prob loi 03/26/2020 12:00:00 AM EDT eCW1 ([facility]) Z68.31 [id number] Body mass index (BMI) 31.0-31.9, adult Pr oblem 03/26/2020 12:00:00 AM EDT eCW1 ([facility]) Z12.4 [id number] Cervical cancer screening Problem 03/26/2020 12:00:00 AM EDT eCW1 ([facility]) K21.9 [id number] Gastroesophageal ref lux disease, esophagitis presence not specified Problem 03/26/2020 12:00:00 AM EDT eCW1 ([facility]) Z12.39 [id number] Breast cancer screening Problem 03/26/2020 1 2:00:00 AM EDT eCW1 ([facility]) Z12.11 [id number] Colon cancer screening Problem 03/26/2020 12 :00:00 AM EDT eCW1 ([facility]) Z13.220 [id number] Lipid screening Problem 03/26/2020 12:00:00 AM EDT eCW1 ([facility]) Surgeries/Procedures Procedure Description Date Indications Data Source(s) Needle electromyography, each extremity, with related paraspinal areas, when performed, done with nerve conduction, amplitude and latency/velocity study; complete, five or more muscles studied, innervated by three or more nerves or four or more spinal levels (list separately in addition to the code for primary procedure). 10/22/2020 12:00:00 AM EST MEDEN T ([facility] ) Nerve Conduction 9-10 Studies 10/22/2020 12:00:[address] [facility] ([facility] ) INJECTION 1 TENDON SHEATH/LIGAMENT APONEUROSIS 020 12:00:00 AM EST MEDENT ([facility]) Results ID Date Data Source [id number] 10/30/2020 09:22:00 AM EST [facility] ([facility]) Name Value Range Interpretation Code Description Data Babita rce(s) Supporting Document(s) Laboratory test finding (navigational concept) Laboratory test result [facility] ([facility]) ID Date Data Source H PYLORI SERUM QUANT IGM 09/20/2020 12:00:00 AM EST eCW1 ([facility]) Name Value Range Interpretation Code Description Data Babita rce(s) Supporting Document(s) <9.0 0.0-8.9 H PYLORI SERUM QUANT IGM eCW1 ([facility]) ID Date Data Source H PYLORI SERUM QUANT IgG AZRA 09/20/2020 12:00:00 AM EST eCW1 ([facility]) Name Value Range Interpretation Code Description Data Babita rce(s) Supporting Document(s) 0.13 0.00-0.79 H PYLORI SERUM QUANT IgG AZRA eCW1 ([facility]) ID Date Data Source PLZ SPINE CERVICAL COMPLETE 08/07/2020 04:57:21 AM EDT eCW1 ([facility]) Name Value Range Interpretation Code Description Data Babita rce(s) Supporting Document(s) PLZ SPINE CERVICAL COMPLETE eC W1 ([facility]) ID Date Data Source WWBC Tevin Screening Bilateral (Ultrasound if Indicated ) (3D Mammo) 07/24/2020 02:56:24 AM EDT eCW1 ([facility]) Name Value Range Interpretation Code Description Data Babita rce(s) Supporting Document(s) eCW1 ([facility]) ID Date Data Source ADM SHOULDER COMPLETE 04/04/2020 03:55:37 AM EDT eCW1 ([facility]) Name Value Range Interpretation Code Description Data Babita rce(s) Supporting Document(s) eCW1 ([facility]) ID Date Data Source FREE T4 & TSH PANEL 03/26/2020 06:25:07 AM EDT eCW1 ([facility]) Name Value Range Interpretation Code Description Data Babita rce(s) Supporting Document(s) 2.680 eCW1 ([facility]) 1.13 eCW1 ([facility]) ID Date Data Source Comprehensive Metabolic Profile (CMP) 03/26/2020 06:24:58 AM EDT eCW1 ([facility]) Name Value Range Interpretation Code Description Data Babita rce(s) Supporting Document(s) 11 eCW1 ([facility]) 81 eCW1 ([facility]) 4.2 eCW1 ([facility]) > 60.0 eCW1 ([facility]) 0.83 eCW1 ([facility]) 138 eCW1 ([facility]) 26 eCW1 ([facility]) 9.4 eCW1 ([facility]) 106 eCW1 ([facility]) 102 eCW1 ([facility]) 27 eCW1 ([facility]) 0.6 eCW1 ([facility]) 19 eCW1 ([facility]) 1.0 eCW1 ([facility]) 7.3 eCW1 ([facility]) 3.7 eCW1 ([facility]) ID Date Data Source [id number] 03/26/2020 06:24:45 AM EDT eCW1 ([facility]) Name Value Range Interpretation Code Description Data Babita rce(s) Supporting Document(s) Hemoglobin A1c/Hemoglobin.total in Blood 5.6 eCW1 ([facility]) ID Date Data Source CBC with Differential 03/26/2020 06:24:38 AM EDT eCW1 ([facility]) Name Value Range Interpretation Code Description Data Babita rce(s) Supporting Document(s) 5.6 eCW1 ([facility]) 4.54 eCW1 ([facility]) 13.0 eCW1 ([facility]) 31.9 eCW1 ([facility]) 40.8 eCW1 ([facility]) 28.6 eCW1 ([facility]) 89.9 eCW1 ([facility]) 309 eCW1 ([facility]) 58.4 eCW1 ([facility]) 13.2 eCW1 ([facility]) 30.0 eCW1 ([facility]) 0.7 eCW1 ([facility]) 2.7 eCW1 ([facility]) 3.3 eCW1 ([facility]) 8.0 eCW1 ([facility]) 0.5 eCW1 ([facility]) 0.0 eCW1 ([facility]) 0.2 eCW1 ([facility]) 1.7 eCW1 ([facility]) ID Date Data Source LIPID PANEL (CARDIAC RISK) 03/26/2020 06:24:28 AM EDT eCW1 ( [facility]) Name Value Range Interpretation Code Description Data Babita rce(s) Supporting Document(s) Cholesterol in LDL [Mass/volume] in Serum or Plasma by calculation 10 1 eCW1 ([facility]) Triglyceride [Mass/volume] in Serum or Plasma by calculation 146 eCW1 ([facility]) Cholesterol in HDL [Moles/volume] in Serum or Plasma 51 eCW1 ([facility]) Cholesterol [Moles/volume] in Serum or Plasma 181 eCW1 ([facility]) 3.549 eCW1 ([facility]) 130 eCW1 ([facility]) Procedure Social History Code Duration Value Status Description Data Source(s ) Smoking 09/20/2020 12:00:00 AM EST Never Smoker completed Never S moker eCW1 ([facility]) Smoking 08/07/2020 12:00:00 AM EDT Never Smoker completed Never S moker eCW1 ([facility]) Smoking 08/07/2020 12:00:00 AM EDT Never Smoker completed Never S moker eCW1 ([facility]) Smoking 08/07/2020 12:00:00 AM EDT Never Smoker completed Never S moker eCW1 ([facility]) Smoking 04/29/2020 12:00:00 AM EDT Never Smoker completed Never S moker eCW1 ([facility]) Smoking 04/29/2020 12:00:00 AM EDT Never Smoker completed Never S moker eCW1 ([facility]) Smoking 04/29/2020 12:00:00 AM EDT Never Smoker completed Never S moker eCW1 ([facility]) Smoking 04/29/2020 12:00:00 AM EDT Never Smoker completed Never S moker eCW1 ([facility]) Vital Signs ID Date Data Source UNK Name Value Range Interpretation Code Description Data Source(s) Body temperature 97.1 [degF] 97.1 [degF] MEDENT ([facility] ) Body mass index (BMI) [Ratio] 31.6 kg/m2 31.6 k g/m2 MEDENT ([facility] ) Body weight 190.00 [lb_av] 190.00 [lb_av] MEDEN T ([facility] ) Body height 65 [in_i] 65 [in_i] MEDENT ([facility] ) 5'5" Body temperature 97.1 [degF] 97.1 [degF] MEDENT ([facility] ) Body mass index (BMI) [Ratio] 31.6 kg/m2 31.6 k g/m2 MED[facility] ([facility] ) Body weight 190.00 [lb_av] 190.00 [lb_av] MEDEN T ([facility] ) Body height 65 [in_i] 65 [in_i] MED[facility] ([facility] ) 5'5" Body temperature 97.3 [degF] 97.3 [degF] MEDENT ([facility]) Diastolic blood pressure 82 mm[Hg] 82 mm[Hg] eCW1 ([facility]) Systolic blood pressure 132 mm[Hg] 132 mm[Hg] e CW1 ([facility]) Body temperature 96.0 [degF] 96.0 [degF] eCW1 ( [facility]) Respiratory rate 20 /min 20 /min eCW1 ([facility]) Heart rate 91 /min 91 /min eCW1 ([facility]) Body mass index (BMI) [Ratio] 31.55 kg/m2 31.55 kg/m2 eCW1 ([facility]) Body height 65 [in_i] 65 [in_i] eCW1 ([facility]) Body weight 189.6 [lb_av] 189.6 [lb_av] eCW1 ([facility]) Diastolic blood pressure 80 mm[Hg] 80 mm[Hg] eCW1 ([facility]) Systolic blood pressure 130 mm[Hg] 130 mm[Hg] e CW1 ([facility]) Body temperature 97 [degF] 97 [degF] eCW1 ([facility]) Respiratory rate 18 /min 18 /min eCW1 ([facility]) Heart rate 80 /min 80 /min eCW1 ([facility]) Body mass index (BMI) [Ratio] 31.28 kg/m2 31.28 kg/m2 eCW1 ([facility]) Body height 65 [in_i] 65 [in_i] eCW1 ([facility]) Body weight 188 [lb_av] 188 [lb_av] eCW1 ([facility]) Diastolic blood pressure 80 mm[Hg] 80 mm[Hg] eCW1 ([facility]) Systolic blood pressure 118 mm[Hg] 118 mm[Hg] e CW1 ([facility]) Body temperature 97.1 [degF] 97.1 [degF] eCW1 ( [facility]) Respiratory rate 17 /min 17 /min eCW1 ([facility]) Heart rate 116 /min 116 /min eCW1 ([facility]) Body mass index (BMI) [Ratio] 31.18 kg/m2 31.18 kg/m2 eCW1 ([facility]) Body height 65 [in_i] 65 [in_i] eCW1 ([facility]) Body weight 187.4 [lb_av] 187.4 [lb_av] eCW1 ([facility]) Diastolic blood pressure 60 mm[Hg] 60 mm[Hg] eCW1 ([facility]) Systolic blood pressure 108 mm[Hg] 108 mm[Hg] e CW1 ([facility]) Body temperature 97.7 [degF] 97.7 [degF] eCW1 ( [facility]) Respiratory rate 17 /min 17 /min eCW1 ([facility]) Heart rate 94 /min 94 /min eCW1 ([facility]) Body mass index (BMI) [Ratio] 31.02 kg/m2 31.02 kg/m2 eCW1 ([facility]) Body height 65 [in_i] 65 [in_i] eCW1 ([facility]) Body weight 186.4 [lb_av] 186.4 [lb_av] eCW1 ([facility]) Patient Treatment Plan of Care Planned Activity Planned Date Details Description Data Source (s) gabapentin 100 MG Oral Capsule 08/07/2020 12:00:00 AM EDT eCW1 ([facility]) gabapentin 100 MG Oral Capsule 08/07/2020 12:00:00 AM EDT eCW1 ([facility]) gabapentin 100 MG Oral Capsule 08/07/2020 12:00:00 AM EDT eCW1 ([facility])
--- OUTSIDE RECORDS SUMMARY | 2020-11-11 12:20 | CCD ---
Author Author [facility] Organization [facility] Address Unknown Phone Unavailable Care Team Providers Care Staff Educator Name Role Phone Horne, Xiang Unavailable Unavailable [...] L Omari MD Unavailable Unavailable Perry, L Moari MD Unavailable Unavailable Perry, L Omari MD [...] is protected by Article 27-F of the [facility] Public Health law. If you continue you may have access to information: Regarding HIV / AIDS; Provided by facilities licensed or operated by the [facility] Office of Mental Health; or Provided by the [facility] Office for People With Developmental Disabilities. If such information is present, then the following [facility] mandated warning applies: This information has been [...] law may result in a fine or long-term sentence or both. A general authorization for the release of medical or other information is NOT sufficient authorization for further disc losure. Encounters Encounter Providers Location Date Indications Data Source(s ) Outpatient Attender: Xiang Horne Physical Therapy 10/22/2020 07:30:0 0 AM EST MEDENT ([facility]) Outpatient Attender: Omari Perry MD Physical Therapy 09/27/2020 0 9:45:00 AM EST MEDENT ([facility]) Outpatient [address] [facility] [place] [address] 09/20/2020 12:00:00 AM EST eCW1 ([facility]) Unknown [address] [facility] [place] [address] 08/27/2020 12:00:00 AM EST eCW1 ([facility]) Unknown [address] [facility] [place] [address] 08/08/2020 12:00:00 AM EDT eCW1 ([facility]) Outpatient [address] [facility] [place] [address] 08/07/2020 12:00:00 AM EDT eCW1 ([facility]) Unknown [address] [facility] [place] [address] 07/02/2020 12:00:00 AM EDT eCW1 ([facility]) Unknown [address] [facility] [place] [address] 07/02/2020 12:00:00 AM EDT eCW1 ([facility]) Outpatient [address] [facility] [place] [address] 04/29/2020 12:00:00 AM EDT eCW1 ([facility]) Outpatient 04/05/2020 05:37:00 AM EDT [facility] Outpatient [address] [facility] [address] [place] [address] 03/26/2020 12:00:00 AM EDT eCW1 ([facility]) Medications Medication Brand Name Start Date [...] {capsule} active G abapentin 100 MG eCW1 ([facility]) gabapentin 100 MG Oral Capsule Gabapentin 100 MG Gabapentin 100 MG 08/07/2020 12:00:00 AM EDT 1.0 {capsule} active G abapentin 100 MG eCW1 ([facility]) 100 mg 08/07/2020 12:00:00 AM EDT capsule 60 TAKE ONE CAPSULE BY MOUTH TWICE A DAY TAKE ONE CAPSULE BY MOUTH TWICE A DAY SOLD: 08/08/2020 [facility] gabapentin 100 MG Oral Capsule Gabapentin 100 MG Gabapentin 100 MG 08/07/2020 12:00:00 AM EDT 1.0 {capsule} active G abapentin 100 MG eCW1 ([facility]) gabapentin 100 MG Oral Capsule Gabapentin 100 MG Gabapentin 100 MG 08/07/2020 12:00:00 AM EDT 1.0 {capsule} active G abapentin 100 MG eCW1 ([facility]) Meclizine Hydrochloride 25 MG Oral Tablet MECLIZINE [...] relationship to salazar Policy Salazar Plan Information [facility] [id number] SP [id number] [facility] [id number] SP [id number] [facility] O [id number] S [id number] Problems, Conditions, and Diagnoses Code Display Name Description Problem Type Effective Dates Data Source(s) M19.012 [id number] 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 Problem 08/27/2020 12:00:00 AM EST eCW1 ([facility]) M48.02 [id number] Spinal stenosis, cervical region Problem 08/27/2020 12:00:00 AM EST eCW1 ([facility]) M50.30 [id number] DDD (degenerative disc disease), cervical Problem 08/27/2020 12:00:00 AM EST eCW1 ([facility]) E66.09 [id number] Other obesity due to excess calories Prob loi 03/26/2020 12:00:00 AM EDT eCW1 ([facility]) Z68.31 [id number] Body mass index (BMI) 31.0-31.9, adult Pr oblem 03/26/2020 12:00:00 AM EDT eCW1 ([facility]) Z12.4 [id number] Cervical cancer screening Problem 03/26/2020 12:00:00 AM EDT eCW1 ([facility]) K21.9 [id number] Gastroesophageal ref lux disease, esophagitis presence not specified Problem 03/26/2020 12:00:00 AM EDT eCW1 ([facility]) Z12.39 [id number] Breast cancer screening Problem 03/26/2020 1 2:00:00 AM EDT eCW1 ([facility]) Z12.11 [id number] Colon cancer screening Problem 03/26/2020 12 :00:00 AM EDT eCW1 ([facility]) Z13.220 [id number] Lipid screening Problem 03/26/2020 12:00:00 AM EDT eCW1 ([facility]) Surgeries/Procedures Procedure Description Date Indications Data Source(s) Needle electromyography, each extremity, with related paraspinal areas, when performed, done with nerve conduction, amplitude and latency/velocity study; complete, five or more muscles studied, innervated by three or more nerves or four or more spinal levels (list separately in addition to the code for primary procedure). 10/22/2020 12:00:00 AM EST MEDEN T ([facility] ) Nerve Conduction 9-10 Studies 10/22/2020 12:00:[address] MEDENT ([facility] ) INJECTION 1 TENDON SHEATH/LIGAMENT APONEUROSIS 020 12:00:00 AM EST MEDENT ([facility]) Results ID Date Data Source [id number] 10/30/2020 09:22:00 AM EST MEDENT ([facility]) Name Value Range Interpretation Code Description Data Babita rce(s) Supporting Document(s) Laboratory test finding (navigational concept) Laboratory test result MEDENT ([facility]) ID Date Data Source H PYLORI SERUM QUANT IGM 09/20/2020 12:00:00 AM EST eCW1 ([facility]) Name Value Range Interpretation Code Description Data Babita rce(s) Supporting Document(s) <9.0 0.0-8.9 H PYLORI SERUM QUANT IGM eCW1 ([facility]) ID Date Data Source H PYLORI SERUM QUANT IgG AZRA 09/20/2020 12:00:00 AM EST eCW1 ([facility]) Name Value Range Interpretation Code Description Data Babita rce(s) Supporting Document(s) 0.13 0.00-0.79 H PYLORI SERUM QUANT IgG AZRA eCW1 ([facility]) ID Date Data Source PLZ SPINE CERVICAL COMPLETE 08/07/2020 04:57:21 AM EDT eCW1 ([facility]) Name Value Range Interpretation Code Description Data Babita rce(s) Supporting Document(s) PLZ SPINE CERVICAL COMPLETE eC W1 ([facility]) ID Date Data Source WWBC Tevin Screening Bilateral (Ultrasound if Indicated ) (3D Mammo) 07/24/2020 02:56:24 AM EDT eCW1 ([facility]) Name Value Range Interpretation Code Description Data Babita rce(s) Supporting Document(s) eCW1 ([facility]) ID Date Data Source ADM SHOULDER COMPLETE 04/04/2020 03:55:37 AM EDT eCW1 [facility] Name Value Range Interpretation Code Description Data Babita rce(s) Supporting Document(s) eCW1 ([facility]) ID Date Data Source FREE T4 & TSH PANEL 03/26/2020 06:25:07 AM EDT eCW1 ([facility]) Name Value Range Interpretation Code Description Data Babita rce(s) Supporting Document(s) 2.680 eCW1 ([facility]) 1.13 eCW1 ([facility]) ID Date Data Source Comprehensive Metabolic Profile (CMP) 03/26/2020 06:24:58 AM EDT eCW1 ([facility]) Name Value Range Interpretation Code Description Data Babita rce(s) Supporting Document(s) 11 eCW1 ([facility]) 81 eCW1 ([facility]) 4.2 eCW1 ([facility]) > 60.0 eCW1 ([facility]) 0.83 eCW1 ([facility]) 138 eCW1 ([facility]) 26 eCW1 ([facility]) 9.4 eCW1 ([facility]) 106 eCW1 ([facility]) 102 eCW1 ([facility]) 27 eCW1 ([facility]) 0.6 eCW1 ([facility]) 19 eCW1 ([facility]) 1.0 eCW1 ([facility]) 7.3 eCW1 ([facility]) 3.7 eCW1 ([facility]) ID Date Data Source [id number] 03/26/2020 06:24:45 AM EDT eCW1 ([facility]) Name Value Range Interpretation Code Description Data Babita rce(s) Supporting Document(s) Hemoglobin A1c/Hemoglobin.total in Blood 5.6 eCW1 ([facility]) ID Date Data Source CBC with Differential 03/26/2020 06:24:38 AM EDT eCW1 ([facility]) Name Value Range Interpretation Code Description Data Babita rce(s) Supporting Document(s) 5.6 eCW1 ([facility]) 4.54 eCW1 ([facility]) 13.0 eCW1 ([facility]) 31.9 eCW1 ([facility]) 40.8 eCW1 ([facility]) 28.6 eCW1 ([facility]) 89.9 eCW1 ([facility]) 309 eCW1 ([facility]) 58.4 eCW1 ([facility]) 13.2 eCW1 ([facility]) 30.0 eCW1 ([facility]) 0.7 eCW1 ([facility]) 2.7 eCW1 ([facility]) 3.3 eCW1 ([facility]) 8.0 eCW1 ([facility]) 0.5 eCW1 ([facility]) 0.0 eCW1 ([facility]) 0.2 eCW1 ([facility]) 1.7 eCW1 ([facility]) ID Date Data Source LIPID PANEL (CARDIAC RISK) 03/26/2020 06:24:28 AM EDT eCW1 ( [facility]) Name Value Range Interpretation Code Description Data Babita rce(s) Supporting Document(s) Cholesterol in LDL [Mass/volume] in Serum or Plasma by calculation 10 1 eCW1 ([facility]) Triglyceride [Mass/volume] in Serum or Plasma by calculation 146 eCW1 ([facility]) Cholesterol in HDL [Moles/volume] in Serum or Plasma 51 eCW1 ([facility]) Cholesterol [Moles/volume] in Serum or Plasma 181 eCW1 ([facility]) 3.549 eCW1 ([facility]) 130 eCW1 ([facility]) Procedure Social History Code Duration Value Status Description Data Source(s ) Smoking 09/20/2020 12:00:00 AM EST Never Smoker completed Never S moker eCW1 ([facility]) Smoking 08/07/2020 12:00:00 AM EDT Never Smoker completed Never S moker eCW1 ([facility]) Smoking 08/07/2020 12:00:00 AM EDT Never Smoker completed Never S moker eCW1 ([facility]) Smoking 08/07/2020 12:00:00 AM EDT Never Smoker completed Never S moker eCW1 ([facility]) Smoking 04/29/2020 12:00:00 AM EDT Never Smoker completed Never S moker eCW1 ([facility]) Smoking 04/29/2020 12:00:00 AM EDT Never Smoker completed Never S moker eCW1 ([facility]) Smoking 04/29/2020 12:00:00 AM EDT Never Smoker completed Never S moker eCW1 ([facility]) Smoking 04/29/2020 12:00:00 AM EDT Never Smoker completed Never S moker eCW1 ([facility]) Vital Signs ID Date Data Source UNK Name Value Range Interpretation Code Description Data Source(s) Body temperature 97.1 [degF] 97.1 [degF] MEDENT ([facility] Body mass index (BMI) [Ratio] 31.6 kg/m2 31.6 k g/m2 MEDENT ([facility] ) Body weight 190.00 [lb_av] 190.00 [lb_av] MEDEN T ([facility] ) Body height 65 [in_i] 65 [in_i] MEDENT ([facility] ) 5'5" Body temperature 97.1 [degF] 97.1 [degF] MEDENT ([facility] ) Body mass index (BMI) [Ratio] 31.6 kg/m2 31.6 k g/m2 MEDENT ([facility] ) Body weight 190.00 [lb_av] 190.00 [lb_av] MEDEN T ([facility] ) Body height 65 [in_i] 65 [in_i] MEDENT ([facility] ) 5'5" Body temperature 97.3 [degF] 97.3 [degF] MEDENT ([facility]) Diastolic blood pressure 82 mm[Hg] 82 mm[Hg] eCW1 ([facility]) Systolic blood pressure 132 mm[Hg] 132 mm[Hg] e CW1 ([facility]) Body temperature 96.0 [degF] 96.0 [degF] eCW1 ( [facility]) Respiratory rate 20 /min 20 /min eCW1 ([facility]) Heart rate 91 /min 91 /min eCW1 ([facility]) Body mass index (BMI) [Ratio] 31.55 kg/m2 31.55 kg/m2 eCW1 ([facility]) Body height 65 [in_i] 65 [in_i] eCW1 ([facility]) Body weight 189.6 [lb_av] 189.6 [lb_av] eCW1 ([facility]) Diastolic blood pressure 80 mm[Hg] 80 mm[Hg] eCW1 ([facility]) Systolic blood pressure 130 mm[Hg] 130 mm[Hg] e CW1 ([facility]) Body temperature 97 [degF] 97 [degF] eCW1 ([facility]) Respiratory rate 18 /min 18 /min eCW1 ([facility]) Heart rate 80 /min 80 /min eCW1 ([facility]) Body mass index (BMI) [Ratio] 31.28 kg/m2 31.28 kg/m2 eCW1 ([facility]) Body height 65 [in_i] 65 [in_i] eCW1 ([facility]) Body weight 188 [lb_av] 188 [lb_av] eCW1 ([facility]) Diastolic blood pressure 80 mm[Hg] 80 mm[Hg] eCW1 ([facility]) Systolic blood pressure 118 mm[Hg] 118 mm[Hg] e CW1 ([facility]) Body temperature 97.1 [degF] 97.1 [degF] eCW1 ( [facility]) Respiratory rate 17 /min 17 /min eCW1 ([facility]) Heart rate 116 /min 116 /min eCW1 ([facility]) Body mass index (BMI) [Ratio] 31.18 kg/m2 31.18 kg/m2 eCW1 ([facility]) Body height 65 [in_i] 65 [in_i] eCW1 ([facility]) Body weight 187.4 [lb_av] 187.4 [lb_av] eCW1 ([facility]) Diastolic blood pressure 60 mm[Hg] 60 mm[Hg] eCW1 ([facility]) Systolic blood pressure 108 mm[Hg] 108 mm[Hg] e CW1 ([facility]) Body temperature 97.7 [degF] 97.7 [degF] eCW1 ( [facility]) Respiratory rate 17 /min 17 /min eCW1 ([facility]) Heart rate 94 /min 94 /min eCW1 ([facility]) Body mass index (BMI) [Ratio] 31.02 kg/m2 31.02 kg/m2 eCW1 ([facility]) Body height 65 [in_i] 65 [in_i] eCW1 ([facility]) Body weight 186.4 [lb_av] 186.4 [lb_av] eCW1 ([facility]) Patient Treatment Plan of Care Planned Activity Planned Date Details Description Data Source (s) gabapentin 100 MG Oral Capsule 08/07/2020 12:00:00 AM EDT eCW1 ([facility]) gabapentin 100 MG Oral Capsule 08/07/2020 12:00:00 AM EDT eCW1 ([facility]) gabapentin 100 MG Oral Capsule 08/07/2020 12:00:00 AM EDT eCW1 ([facility])
[2020-11-11 12:29] LABS: BASO % 0.3 % (0.0-1.0); EOS % 0.1 % (0.0-3.0); HEMATOCRIT 39.6 % (36.0-47.0); HEMOGLOBIN 12.6 g/dl (12.0-15.5); LYMPH # 0.9 10^3/uL (1.5-5.0); MEAN CORPUSCULAR HEMOGLOBIN 27.6 pg (27.0-33.0); MEAN CORPUSCULAR HGB CONC 31.8 g/dl (32.0-36.5); MEAN CORPUSCULAR VOLUME 86.8 fl (80.0-96.0); MONO # 0.7 10^3/uL (0.0-0.8); MONO % 5.8 % (0.0-5.0); NEUTROPHILS # 10.1 10^3/uL (1.5-8.5); NEUTROPHILS % 85.2 % (36.0-66.0); PLATELET COUNT, AUTOMATED 312 10^3/uL (150-450); RED BLOOD COUNT 4.56 10^6/uL (4.00-5.40); WHITE BLOOD COUNT 11.8 10^3/uL (4.0-10.0)
--- NOTE | 2020-11-11 12:43 | REP ---
INDICATION: CHEST PAIN. COMPARISON: No comparison study. TECHNIQUE: Portable upright AP chest radiograph. FINDINGS: The lungs are well inflated and free of infiltrate. Pleural angles are sharp. Heart size is normal. Pulmonary vasculature is not increased. Monitoring electrodes are seen. IMPRESSION: No active disease. <Electronically signed by Joby Torres > 11/11/20 [id number]
[2020-11-11 13:05] LABS: ALBUMIN 3.9 GM/DL (3.2-5.2); BILIRUBIN,DIRECT 0.2 MG/DL (0.0-0.2); BILIRUBIN,TOTAL 0.4 MG/DL (0.2-1.0); FREE T4 1.04 NG/DL (0.76-1.46); THYROID STIMULATING HORMONE 0.891 uIU/ML (0.358-3.740); TOTAL PROTEIN 7.7 GM/DL (6.4-8.2)
[2020-11-11 14:11] LABS: RSV AMPLIFICATION NEGATIVE (NEGATIVE)
[2020-11-11] MEDS ORDERED: ISOVUE-370 76% 100ML VIAL As Ordered ONE (14:49)
--- NOTE | 2020-11-11 15:19 | REP ---
INDICATION: r/o PE. COMPARISON: None. TECHNIQUE: Contrast dose: 75 ML of Isovue [address] technique: Helical scanning is acquired and overlapping 1.5 mm and contiguous 3 mm axial images are reformatted. In addition, maximum intensity projection and multiplanar re-formation images are generated in sagittal and coronal imaging projections. FINDINGS: There is good opacification in the pulmonary arterial tree. There is no evidence of vessel cut off or filling defect to suggest pulmonary embolus. Homogeneous opacity is seen in the thoracic aorta. There is no evidence of aneurysm or dissection. Lung window settings demonstrate clear well inflated lungs. There is no evidence of infiltrate, mass, atelectasis or significant nodule. No pleural or pericardial effusion is seen. No hilar or mediastinal mass or adenopathy is observed. In the upper abdomen, normal adrenal glands are seen. There are surgical clips in the gallbladder fossa. The visualized upper abdominal structures are otherwise unremarkable. No bony destructive lesion is seen. IMPRESSION: No CT evidence of pulmonary embolus. Negative CT pulmonary angiogram. <Electronically signed by Joby Torres > 11/11/20 [id number]
[2020-11-11 15:45] VITALS: BP 145/84
--- NOTE | 2020-11-11 20:45 | ECGEPIP ---
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
== END 2020-11-11 15:56 | disposition home or self-care (01) ==
LOC: M ED 11:22
DX: R07.89 Other chest pain (principal); R00.0 Tachycardia, unspecified; K21.9 Gastro-esophageal reflux disease without esophagitis; Z79.899 Other long term (current) drug therapy; Z88.0 Allergy status to penicillin; Z91.013 Allergy to seafood
CPT/HCPCS: 71045; 71275; 80047; 80076; 83690; 84439; 84443; 85025; 87631; 93005; 93041; 94760; 99285; Q9967

== ENCOUNTER → 2021-03-06 | Outpatient (REF) | payer OTHER ==
[2021-03-06 10:44] LABS: BASO # 0.1 10^3/uL (0.0-0.2); BASO % 0.9 % (0.0-1.0); EOS # 0.2 10^3/uL (0.0-0.5); EOS % 3.1 % (0.0-3.0); HEMATOCRIT 38.6 % (36.0-47.0); HEMOGLOBIN 12.1 g/dl (12.0-15.5); LYMPH # 1.7 10^3/uL (1.5-5.0); MEAN CORPUSCULAR HEMOGLOBIN 27.7 pg (27.0-33.0); MEAN CORPUSCULAR HGB CONC 31.3 g/dl (32.0-36.5); MEAN CORPUSCULAR VOLUME 88.3 fl (80.0-96.0); MONO # 0.5 10^3/uL (0.0-0.8); MONO % 7.8 % (2.0-8.0); NEUTROPHILS # 4.3 10^3/uL (1.5-8.5); NEUTROPHILS % 62.9 % (36.0-66.0); PLATELET COUNT, AUTOMATED 345 10^3/uL (150-450); RED BLOOD COUNT 4.37 10^6/uL (4.00-5.40); WHITE BLOOD COUNT 6.8 10^3/uL (4.0-10.0)
[2021-03-06 11:12] LABS: ALT/SGPT 28 U/L (12-78); BLOOD UREA NITROGEN 11 MG/DL (7-18); CALCIUM LEVEL 9.5 MG/DL (8.5-10.1); CARBON DIOXIDE LEVEL 28 MEQ/L (21-32); CHLORIDE LEVEL 106 MEQ/L (98-107); CREATININE FOR GFR 0.75 MG/DL (0.55-1.30); GLOMERULAR FILTRATION RATE > 60.0 (>58); GLUCOSE, FASTING 98 MG/DL (70-100); POTASSIUM SERUM 4.2 MEQ/L (3.5-5.1); SODIUM LEVEL 139 MEQ/L (136-145)
[2021-03-06 11:13] LABS: ALBUMIN 3.3 GM/DL (3.2-5.2); BILIRUBIN,TOTAL 0.4 MG/DL (0.2-1.0); LIPASE 185 U/L (73-393)
== END ==
LOC: M SFHCPLAZ 08:44
PROVIDERS: ATTEND Physician Assistant Medical
DX: R10.13 Epigastric pain (principal)

== ENCOUNTER → 2021-03-06 | Outpatient (CLI) | payer OTHER ==
--- NOTE | 2021-03-06 10:08 | REPPI ---
INDICATION: R10.13 EPIGASTRIC ABDOMINAL PAIN COMPARISON: None. TECHNIQUE: Upright view of the chest with supine and upright views of the abdomen and pelvis. FINDINGS: Frontal upright view of the chest demonstrates no acute cardiopulmonary process or free air below the diaphragm to suspect pneumoperitoneum. Supine and upright views of the abdomen and pelvis demonstrate nonspecific bowel gas pattern without obstruction or perforation. No organomegaly. Evidence for prior cholecystectomy. No abnormal calcifications. Skeletal structures normal for age. IMPRESSION: Nonspecific bowel gas pattern. <Electronically signed by Jeff Mejias > 03/06/21 [id number]
== END ==
LOC: M PLAIMG 08:56
PROVIDERS: ATTEND Physician Assistant Medical
DX: R10.13 Epigastric pain (principal); R14.3 Flatulence

== ENCOUNTER → 2021-03-07 | Outpatient (CLI) | payer OTHER ==
[~2021-03-07] MED LIST changes: +E-Z-GAS II EFFERVESCENT PACKET (SODIUM BICARB./CITRIC ACID/SIMETHICONE) As Ordered ONE; +E-Z-HD 98% w/w 340GM SUSP BTL As Ordered ONE; +E-Z-PAQUE 96% w/w SUSP 176GM BTL As Ordered ONE
--- NOTE | 2021-03-08 09:19 | REP ---
INDICATION: EPIGASTRIC ABD PAIN. COMPARISON: None. TECHNIQUE: The procedure was performed under the direct supervision of Dr. Torres. The images were reviewed with Dr. Torres. Liquid barium and gas producing crystals were given in the erect position as well as liquid barium in the prone oblique position in order to perform a double contrast esophagram and upper GI examination. A combination of fluoroscopy, spot films and last image hold technology was utilized. 1.2 minutes of fluoro time was utilized for this procedure. FINDINGS: The musculoskeletal physician film shows no organomegaly or pathological masses. The intestinal gas pattern is non-specific. There are surgical clips noted in the right upper quadrant. A single view PA chest x-ray submitted as a musculoskeletal physician film. The superior mediastinal structures are midline. The heart size is within normal limits. The lungs are clear. The oral and pharyngeal stages of deglutition are unremarkable. Esophageal transport is prompt and efficient and there is no esophagitis, stricture, mucosal ring or hiatal hernia. Within the stomach there are multiple sub cm polyps identified. The stomach is otherwise unremarkable. The duodenal coleman are normally outlined. The mucosal folds are smooth and regular. There is no duodenitis pancreatitis peptic ulcer disease or neoplasm. The visualized portion of the proximal small bowel appears normal in course and caliber. IMPRESSION: There are multiple sub cm polyps identified within the stomach. Otherwise, unremarkable double contrast esophagram and upper GI examination. <Electronically signed by José Miguel Fuentes > 03/07/21 [id number] <Electronically signed by Joby Torres > 03/08/21 [id number]
== END ==
LOC: M RAD 09:12
PROVIDERS: ATTEND Physician Assistant Medical
DX: R10.13 Epigastric pain (principal); K31.7 Polyp of stomach and duodenum